=== PATIENT | female | born 1960 | race Caucasian/White ===

== ENCOUNTER 2024-03-31 13:53 | Outpatient (CLI) | payer MEDICARE, MEDICAID | END 2024-03-31 23:59 | disposition home or self-care (01) | LOC: RAD 13:53 | PROVIDERS: ATTEND Podiatrist Foot & Ankle Surgery | DX: M19.071 Primary osteoarthritis, right ankle and foot (principal); M25.871 Other specified joint disorders, right ankle and foot; M25.471 Effusion, right ankle | CPT/HCPCS: 73700 ==